=== PATIENT | female | born 1945 | race Caucasian/White ===

== ENCOUNTER → 2023-06-11 16:25 | Outpatient (REF) | payer MEDICARE, SELFPAY | LOC: RAD 16:25 | PROVIDERS: ATTENDING PHYSICIAN Internal Medicine Critical Care Medicine | DX: R91.1 Solitary pulmonary nodule (principal) | CPT/HCPCS: 71250 ==

== ENCOUNTER → 2023-11-11 09:40 | Outpatient (REF) | payer MEDICARE, SELFPAY | LOC: HWWDC 09:40 | PROVIDERS: ATTENDING PHYSICIAN Family Medicine | DX: Z12.31 Encounter for screening mammogram for malignant neoplasm of breast (principal) | CPT/HCPCS: 77063; 77067 ==

== ENCOUNTER 2023-11-20 20:32 | Inpatient (IN) | payer MEDICARE, SELFPAY ==
[2023-11-20] VITALS (10 sets, daily range): BP systolic 130–174; BP diastolic 75–112; BMI 22.6
[2023-11-20 15:41] LABS: % Basophils 1.1 % (0-2); % Eosinophils 3.5 % (0-6); % Lymphocytes 16.9 % (20.5-51.1); % Monocytes 8.5 % (1.7-9.3); Absolute Basophils 0.1 10^3/uL (0-0.2); Absolute Eosinophils 0.4 10^3/uL (0-0.7); Absolute Immature Granulocytes 0.1 10^3/uL (0-0.05); Absolute Lymphocytes 1.8 10^3/uL (1.2-3.4); Absolute Monocytes 0.9 10^3/uL (0.1-0.6); Absolute Neutrophils 7.3 10^3/uL (1.4-6.5); Hematocrit 39.7 % (37.0-47.0); Mean Corp Hgb Conc. 35.3 g/dL (33.0-37.0); Mean Corpuscular Hgb 30.5 pg (27.0-31.0); Mean Corpuscular Volume 86.5 fL (81.0-99.0); Mean Platelet Volume 8.7 fL (7.4-10.4); Nucleated Red Blood Cells % 0 %; Platelet Count 364 10^3/uL (130-400); Red Blood Cell Count 4.59 10^6/uL (4.20-5.40); Red Cell Dist. Width 15.4 % (11.5-14.5); White Blood Cell Count 10.6 10^3/uL (4.8-10.8)
[2023-11-20 15:56] LABS: COVID-19 Antigen Negative (Negative)
[2023-11-20 15:57] LABS: ALT (SGPT) 16 U/L (0-35); AST (SGOT) 21 U/L (14-36); Albumin 3.9 g/dl (3.5-5.0); Alkaline Phosphatase 82 U/L (38-126); Blood Urea Nitrogen 14 mg/dl (7-17); Calcium 9.4 mg/dl (8.4-10.2); Carbon Dioxide 23 mmol/L (22-30); Chloride 104 mmol/L (98-107); Glucose 292 mg/dl (70-99); Potassium 3.6 mmol/L (3.5-5.1); Sodium 135 mmol/L (135-145); Total Bilirubin 0.5 mg/dl (0.2-1.3); Total Protein 6.4 g/dl (6.3-8.2); eGFR > 60.00
--- NOTE | 2023-11-20 19:07 | ED.GENMED ---
History of Present Illness
General
Chief Complaint: Cold/Flu/URI Symptoms
Source: patient
Exam Limitations: none
Time Seen by Provider: 11/20/23 17:30
Nursing documentation reviewed up to this point in time: agreed with
History of Present Illness
History of Present Illness:
Patient presents to ED secondary to 5-day history of persistent cough, along with shortness of breath. Denies fever or chills. Denies chest pain. Denies abdominal pain. Denies nausea, vomiting, or diarrhea. Denies rash. Denies loss of
appetite. Denies recent travel or surgery.
Review of Systems
Review of Systems
Allergies reviewed?: Yes
All Other Systems: ROS reviewed and negative except as documented in HPI and ROS
Constitutional: Reports no symptoms; Denies fever
Respiratory: Reports cough and trouble breathing
Cardiac: Reports no symptoms
ABD/GI: Reports no symptoms
Musculoskeletal: Reports no symptoms
Skin: Reports no symptoms
Neurological: Reports no symptoms
Phy Exam
Physical Exam
Physical Exam:
Physical Exam
General: mild respiratory distress, not acutely ill. afebrile.
Head: nc/at. eomi
Neck: supple. no meningeal signs.
Heart: irregularly irregular, tachycardic, no murmur. equal radial pulses.
Lungs: mild respiratory distress. diminished bilaterally
Abdomen: normal bowel sounds. not tender.
Neuro: alert and oriented. no focal neurological deficits
Skin: no rash
Psychiatric: well kept. interactive and cooperative
Extremities: LE b/l edema. no calf tenderness.
Course
Orders/Labs/Results
Orders:
Orders
11/20/23 Dinner
Cholesterol Lowering
At Your Request: Full Participation
Does patient need a safe tray?: No
Cholesterol Lowering: Sodium, 2 Gram
11/20/23 15:18
EKG [Electrocardiogram (*1)] Urgent
Reason for Study: Shortness of Breath
EKG- Treatment ONCE
11/20/23 15:19
Chest [CR Chest - 2 Views ] Urgent
Comment:
Reason For Exam: cough, shortness of breath
11/20/23 15:20
US Legs, Left [US Periph Venous LOWER Ext LT] Urgent
Comment:
Reason For Exam: pain behind knee, calf area
11/20/23 15:30
CBC/With Diff [Complete Blood Count/With Diff] Urgent
CMP [Comprehensive Metabolic Panel] Urgent
COVID-19 Antigen Urgent
Source: Nasal Swab
NT-proBNP Urgent
Comment: ADD ON
TSH Reflex To Free T4 Urgent
Comment: ADD ON
11/20/23 19:19
Azithromycin 500 mg/250 ml [Zithromax Infusion] 500 mg in 250 ml IV NOW
CefTRIAXone [Rocephin] 1,000 mg IV NOW STA
11/20/23 19:20
Ipratropium/Albuterol Sulfate [Duoneb] 3 ml INH R NOW STA
11/20/23 19:21
Benzonatate [Tessalon Perles] 100 mg PO NOW STA
11/20/23 19:30
Diltiazem 125 mg/125 ml Nss [Cardizem] 125 mg in 125 ml IV PER PROTOCOL
Initial dose in mg/hr, then titrate:: 5
Titrate to keep:: Heart rate 80-100 bpm
Titrate by mg/hr:: 5 mg/hr
Frequency of titrations (minutes):: 15
Maximum dose in mg/hr:: 15
11/20/23 19:54
Add On- LAB Urgent
Tests Added?: bnp, tsh with free t4
11/20/23 19:58
Admit/Transfer Patient As Directed
Co-Sign Provider:
Level of Care: Inpatient admission
Assign to:: IMU- Intermediate Care
Physician / Group: jhony velazco
Diagnosis: hypoxia 2/2 left side pna, rapid afb rvr
Reason for Hospitalization: hypoxia 2/2 left side pna, rapid afb rvr
Expected length of stay greater than two midnights?: Yes
ELOS- Estimated Length of Stay in days: 4
I certify the patient meets the requirements for IP care: Yes
11/20/23 20:04
Code Status As Directed
Resuscitation Status: Full Code
11/20/23 20:16
Consult Cardiology [CARDIOLOGY CONSULT] Routine
Consulting Provider: Abhishek Billingsley
Was physician already notified: Yes
Reason for consult: afib with rvr
11/20/23 20:22
Add On- LAB Urgent
Tests Added?: procal
11/20/23 20:23
Procalcitonin Urgent
Comment: COLLECT. CANNOT ADD ON. SPECIMEN IN LAB TO OLD
11/20/23 21:15
Diltiazem 125 mg/125 ml Nss [Cardizem] 125 mg in 125 ml IV PER PROTOCOL
Currently infusing. Continue current dose and titrate:: Yes
Titrate to keep:: Heart rate 80-100 bpm
Titrate by mg/hr:: 5 mg/hr
Frequency of titrations (minutes):: 15
Maximum dose in mg/hr:: 15
11/20/23 21:15
Activity As Directed
Activity Level: As Tolerated
Intake/ Output As Directed
Frequency: Per unit guidelines
Vital Signs As Directed
Frequency: Per unit guidelines
Weight As Directed
Frequency: Daily
O2 Therapy [RESP] Routine
Nasal Cannula Liter Flow: 2 LPM
Titrate/Wean O2 to maintain O2 sat greater than (%): 92
Pulse Ox/spot Check [RESP] Routine
Quantity: 1
Ot Eval And Treat Routine
Pt Eval And Treat Routine
Activity Level: As Tolerated
DX Deep Vein Thrombosis Video Routine
11/21/23 06:00
Echo 2D MMode Color/Doppler IN AM
Reason for Study: afib
Basic Metabolic Panel IN AM
Complete Blood Count/With Diff IN AM
Hgba1c [Glycohemoglobin (HgbA1c)] IN AM
11/21/23 08:00
Heparin 5,000 units SC Q12
11/22/23 06:00
Basic Metabolic Panel IN AM
Complete Blood Count/With Diff IN AM
11/23/23 06:00
Basic Metabolic Panel IN AM
Complete Blood Count/With Diff IN AM
11/24/23 06:00
Basic Metabolic Panel IN AM
Complete Blood Count/With Diff IN AM
Abnormal Lab Results
11/20/23
15:30
RDW 15.4 H %
(11.5-14.5)
Abs Immat Gran (auto) 0.1 H 10^3/uL
(0-0.05)
Absolute Neuts (auto) 7.3 H 10^3/uL
(1.4-6.5)
Absolute Monos (auto) 0.9 H 10^3/uL
(0.1-0.6)
Immature Gran % 1.0 H %
(0-0.5)
Lymphocytes % 16.9 L %
(20.5-51.1)
Glucose 292 H mg/dl
(70-99)
11/20/23 15:30
11/20/23 15:30
Vital Signs
Initial and Last Documented VS:
Initial Vital Signs
Temp Pulse Resp BP Pulse Ox
98.2 F 110 25 144/82 95
11/20/23 15:11 11/20/23 15:11 11/20/23 15:11 11/20/23 15:11 11/20/23 15:11
Last Documented Vital Signs
Temp Pulse Resp BP Pulse Ox
98.2 F 103 18 137/81 94
11/20/23 15:11 11/20/23 21:40 11/20/23 21:30 11/20/23 21:40 11/20/23 22:12
MDM/Problems Addressed
MDM/Problems Addressed:
History, exam, and chest x-ray consistent with pneumonia. Patient with mild hypoxia during minimal ambulation with tachycardia, resolved at rest. Patient will be admitted for IV antibiotics, nebulizer treatment, as well as Cardizem infusion, due
to what appears to be recurrent atrial fibrillation. Anticoagulation to be discussed during admission.
Critical care statement: A total of 40 minutes of critical care time was provided for this patient. This includes management of unstable vital signs, evaluation of the patient at bedside, reviewing the patient's pertinent medical records, review of
old EKGs and review of pertinent medical records. This time with separate from time utilized to perform the aforementioned documented procedures
*Critical Care Note
Total Time (30-74mins, 75-104mins- exclusive of procedures): 40 min
ED Attending Note
-
Portions of this chart may have been created with voice recognition software.� Occasional wrong word or��sound alike� substitutions may have occurred due to the inherent limitations of voice recognition software.
Discharge Plan
Departure
Patient Disposition: Admit
Date of Disposition: 11/20/23
Time of Disposition: 19:26
Admit to: Telemetry
Presentation/result/management discussed w/ accepting MD/DO: Hospitalist
Discharge Problem:
Pneumonia, Hypoxia, Atrial fibrillation, rapid
Interventions
Interventions:
*Risk Screen - Suicide Last Done: 11/20/23 15:11
*General Assessment Last Done: 11/20/23 15:11
*Neglect/Abuse Screening Last Done: 11/20/23 15:11
ED- Fall Risk Assessment Last Done: 11/20/23 21:36
*ED COVID-19 Vaccine History Last Done: 11/20/23 21:54
*Nursing Disposition Last Done: 11/20/23 21:36
ED- Pulmonary Assessment Last Done: 11/20/23 17:59
Discharge Date and Time
Discharge Date/Time: 11/20/23 21:36
--- NOTE | 2023-11-20 19:34 | HPS.HSE ---
Addendum entered and electronically signed by Harmeet Bergman DO 11/20/23 21:47:
Patient seen and examined independently. Agree with findings and plan as set forth by WAQAS Cline.
Patient is a 78y F with PMH significant for COPD, paroxysmal A-Fib and hypertension who presents to ED complaining of cough, SOB / GRISSOM and subjective fever for about 5 days. Patient denies any chest pain or palpitations. She states that she has
had A-Fib in the past - but it is rare and brief and has never previously required medication / treatment.
Ass:
Paroxysmal Atrial Fibrillation with Rapid Ventricular Response
Acute HF - Unknown Type - Likely HFpEF
Acute Hypoxemic Respiratory Insufficiency secondary to the above
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
COPD without Acute Exacerbation
Benign Hypertension
Plan:
Admit for further evaluation and treatment.
Clinically seems most c/w CHF secondary to A-Fib > infectious process.
BNP markedly elevated and CXR with vascular prominence.
Procal is pending - but will hold further abx for now.
IV Lasix 20mg daily.
IV Cardizem for rate control for now.
Cardiology evaluation for additional recommendations.
Update Echo.
Check A1C - suspect patient would benefit from treatment for DM.
Follow glucose and cover with SSI if needed.
Original Note:
Family Physician
-
Family Physician:
Chief Complaint
-
Shortness of breath, cough, hypoxia, palpitations
History of Present Illness
78-year-old female complaining of 5-day history of nonproductive cough, shortness of breath, palpitations. She was noted to be hypoxic at 90% on room air in the ER with heart rate 140s. She reports history of A-fib approximately every 5 years over
the past 25 years she has never been on anticoagulation therapy or rate control medications. She follows with Dr. Sheldon from [facility] cardiology. She also reports history of COPD mild uses inhaler once a day. She denies fever, chills, sore throat,
chest pain, palpitations, abdominal pain, nausea, vomiting, diarrhea, urinary symptoms.
SHe has past medical history of COPD, former smoker, A-fib, HTN, prediabetes
Medical History
Past Medical History
Past Medical History: Reports Other
Additional Past Medical History:
COPD
former smoker
A-fib
HTN,
prediabetes
Past Surgical History: Reports Other
Additional Past Surgical History:
Total hysterectomy
Tracheostomy at 18 months old
Cataract extraction
Social History
Tobacco: Former Smoker (5 years 1 pack a day quit 16 years ago)
Alcohol: None
Personal:
Living: With Family
Employment: Retired
Family History
Family History: Not pertinent
Allergies / Home Medications
Allergies reflects when Allergies were last updated in [employer].
Home Medications with original date entered in [employer]
Allergy/Medication List:
Allergies
Allergy/AdvReac Type Severity Reaction Status Date / Time
acetaminophen Allergy Unknown Verified 11/20/23 15:21
[From Tylenol-Codeine]
codeine Allergy Unknown Verified 11/20/23 15:21
[From Tylenol-Codeine]
hydrochlorothiazide Allergy Unknown Verified 11/20/23 15:21
Iodinated Contrast Media Allergy Unknown Verified 11/20/23 15:21
shellfish derived Allergy Unknown Verified 11/20/23 15:21
Home Medications
Vitamin D3 1 cap PO DAILY 11/20/23
citalopram 20 mg tablet 20 mg PO DAILY 11/20/23
diltiazem HCl 30 mg PO BID 11/20/23
metoprolol tartrate 37.5 mg PO BID 11/20/23
multivitamin 1 tab PO DAILY 11/20/23
tiotropium 2.5 mcg-olodaterol 2.5 mcg/actuation mist for inhalation (Stiolto Respimat) 2 puff inhalation DAILY 11/20/23
Review of Systems
-
History Source: Patient
A 12 point ROS was completed and negative except as noted: Yes
Constitutional: Reports Chills; Denies Fever
EENT: Denies Sore Throat or Runny Nose
Respiratory: Reports Cough (Nonproductive) and Trouble Breathing
Cardiac: Reports Palpitations; Denies Chest Pain, Diaphoresis or Syncope
Abdomen/GI: Denies Abdominal Pain, Nausea, Vomiting, Diarrhea, Constipated, Bloody Stools or Black Stools
: Denies Dysuria, Frequency, Flank Pain, Incontinence, Difficulty Voiding or Urgency
Musculoskeletal: Reports Edema (+1 nonpitting bilateral lower legs); Denies Joint Pain
Skin: Denies Itching or Rash
Neurological: Denies Dizzy or Headache
Endocrine: Reports No Symptoms
Hematologic/Lymphatic: Reports No Symptoms
Psych: Reports Calm
Physical Exam
Vital Signs
Vital Signs
Temp Pulse Resp BP Pulse Ox
98.2 F 105 20 172/85 92
11/20/23 15:11 11/20/23 17:21 11/20/23 17:21 11/20/23 17:21 11/20/23 17:21
Physical Exam
General: Comfortable and Conversant; No Pain, Fever or Chills
HEENT: NormoCephalic, Anicteric, Moist mucous membranes, PERRLA, [place] Conjunctivae and No Ptosis
Respiratory: Other (Diminished throughout left lung field right CTA); No Wheezes, Rales or Rhonchi
Cardiac: S1/S2, Irregular Rhythm (A-fib 120 bpm on monitor) and Peripheral Edema (+1 nonpitting bilateral lower legs); No Murmur, Rub or Gallop
Breast: Deferred by me
GI: Soft, Non Tender, Non Distended, Normal Bowel Sounds and No Hepatosplenomegaly
Rectal: Deferred by Provider
Genito-urinary: Deferred by me
Musculoskeletal: No Clubbing, No Cyanosis, Edema, Left Lower Extremity (+1 nonpitting bilateral lower legs) and Edema, Right Lower Extremity (+1 nonpitting bilateral lower legs); No Edema, Left Upper Extremity or Edema, Right Upper Extremity
Skin: Warm and Dry; No Rash
Neuro: AO x 3, No Motor Deficits, Nonfocal/grossly intact, Cranial Nerves Intact and No Sensory Deficits; No Slurred Speech, Facial Droop or Tremors
Psych: Calm
Laboratory Results
-
11/20/23 15:30
11/20/23 15:30
Laboratory Results
Total Bilirubin 0.5 mg/dl (0.2-1.3) 11/20/23 15:30
AST 21 U/L (14-36) 11/20/23 15:30
ALT 16 U/L (0-35) 11/20/23 15:30
Alkaline Phosphatase 82 U/L (38-126) 11/20/23 15:30
Data Reviewed
-
Diagnostic Radiology: Report Reviewed by me
Lab Data: Labs Reviewed by me
Impression/Plan
-
Impression/plan:
Admit to IMU
#Hypoxic resp insuff 2/2 New Acute CHf Less likley pna
90% RA, supportive 02 2 ltiers
COVID-negative, afebrile, WBC 10.6
-BNP 7320
- Iv lasix 20 mg now
- Procal pending
-Hold further ABX pending Pro-Bobby low likelihood PNA
CXR: Suspicious for mild pneumonia in the mid to left lower lung.
Small left pleural effusion.
COPD
Peripheral vascular ultrasound left leg negative for DVT
#A-fib with RVR/history of paroxysmal A-fib every 5 years past 25 years
LBBB ? new
-IV Cardizem bolus with IV drip, hold po cardizem
-Consult [facility] cardiology
-Check 2D echo
-Check TSH with free T4 reflex
EKG: A-fib 85 bpm LBBB, QTc 468 MS no previous EKGs
2D echo 09/26/2021: EF 55-60%, mild LVH, mild MR/dilated left atrium aortic sclerosis without stenosis and regurg, normal pulm arterial pressure
#Acute hyperglycemia/Hx reported prediabetes
BS 292
Check HgbA1c
#COPD hx moderate to advanced on CT 04/16/2022�no acute exacerbation
Former smoker 45-year 1 pack a day quit 16 years ago
-Uses inhaler once a day
-Follows with Dr. Aranda
#HTN-benign
BP 172/85
-cont metoprolol 37.5 mg bid
#anxiety
cont citalopram
DVT prophylaxis
Subcu Lovenox
Full code
[2023-11-20] MEDS: ROCEPHIN 1000 MG IV (19:35)
[2023-11-20] MEDS: DUONEB 3 ML INH (19:35)
[2023-11-20] MEDS: TESSALON PERLES 100 MG PO (19:35)
[2023-11-20] MEDS: CARDIZEM 125 IV (19:36)
[2023-11-20] MEDS: ZITHROMAX INFUSION 250 IV (19:36)
[2023-11-20 20:50] LABS: NT-proBNP 7320 pg/ml
[2023-11-20 21:12] LABS: TSH Reflex To Free T4 0.71 uIU/ml (0.47-4.68)
[2023-11-20] MEDS: LASIX 20 MG IV (21:40)
--- NOTE | 2023-11-20 22:11 | PTCARENOTE ---
Pt received from ED. Pt made comfortable and oriented to room. Admission questions completed. Call light in reach.
--- NOTE | 2023-11-20 22:53 | PTCARENOTE ---
Pt attempted to exit bed and walk to bathroom via self. Pt became extremely SOB RR 25, sat 89%. Pt told to get back in bed. Pt increased to 5L. Pt offered bed panchal, Pt visibly upset related to having to urinate via the bed panchal. Pt eventually able to
urinate on bed apnchal. Pt anxious. Pt instructed to focus on breathing. Taking slow deep breaths.
[2023-11-21] VITALS (31 sets, daily range): BP systolic 135–178; BP diastolic 69–111; PULSE 91–129; O2SAT 95–96; BMI 22.6
[2023-11-21 00:03] LABS: Procalcitonin 0.08 ng/ml (0.0-0.25)
[2023-11-21] MEDS: TYLENOL 650 MG PO ×3 (02:25→15:47)
--- NOTE | 2023-11-21 03:37 | PTCARENOTE ---
CHIEF CLERK SHELTER notified of HTN, Pt having SBPS in the 160's-170's. Pt denies changes in vision, or dizziness.Pt has hx of HTN. Order received for PRN Lopressor SBP > 160.
--- NOTE | 2023-11-21 03:40 | PTCARENOTE ---
Addendum entered by John Cerrato RN 11/21/23 03:43:
Tylenol order received. med administered. Pt assessed for SOB, itchiness, allergic reaction. Pt denies any of the previously stated. RR unlabored, sat 95%.
Original Note:
Pt requesting Tylenol for sore neck and back, states it is r/t to laying in the position upright in the hospital bed all day. Pt has allergy listed for Tylenol as well as Codeine. Pt clarifies she is allergic to Tylenol with codeine. She admits to
no allergic reaction when taking Tylenol by itself, states she takes it daily.
[2023-11-21] MEDS: CARDIZEM 125 IV ×3 (04:18→20:27)
[2023-11-21 05:48] LABS: % Eosinophils 1.9 % (0-6); % Lymphocytes 17.9 % (20.5-51.1); % Monocytes 7.3 % (1.7-9.3); % Neutrophils 70.9 % (42.2-75.2); Absolute Basophils 0.1 10^3/uL (0-0.2); Absolute Eosinophils 0.2 10^3/uL (0-0.7); Absolute Immature Granulocytes 0.1 10^3/uL (0-0.05); Absolute Lymphocytes 2.2 10^3/uL (1.2-3.4); Absolute Monocytes 0.9 10^3/uL (0.1-0.6); Absolute Neutrophils 8.5 10^3/uL (1.4-6.5); Hematocrit 38.9 % (37.0-47.0); Hemoglobin 13.8 g/dL (12.0-16.0); Mean Corp Hgb Conc. 35.5 g/dL (33.0-37.0); Mean Corpuscular Hgb 30.4 pg (27.0-31.0); Mean Corpuscular Volume 85.7 fL (81.0-99.0); Mean Platelet Volume 8.8 fL (7.4-10.4); Nucleated Red Blood Cells % 0 %; Platelet Count 375 10^3/uL (130-400); Red Blood Cell Count 4.54 10^6/uL (4.20-5.40); Red Cell Dist. Width 15.1 % (11.5-14.5)
[2023-11-21 06:07] LABS: Blood Urea Nitrogen 12 mg/dl (7-17); Calcium 9.5 mg/dl (8.4-10.2); Carbon Dioxide 25 mmol/L (22-30); Chloride 105 mmol/L (98-107); Estimated Creatinine Clearance 55 ml/min; Glucose 221 mg/dl (70-99); Potassium 3.7 mmol/L (3.5-5.1); Sodium 138 mmol/L (135-145); eGFR > 60.00
--- NOTE | 2023-11-21 07:00 | PTCARENOTE ---
Cannot verify VS captured from prior shift.
[2023-11-21] MEDS: SPIRIVA RESPIMAT 2.5 MCG 2 PUFF INH (07:25)
[2023-11-21] MEDS: STRIVERDI RESPIMAT 2 PUFF INH (07:26)
[2023-11-21 07:50] LABS: Glucose - Point of Care 247 mg/dl (70-99)
[2023-11-21] MEDS: NOVOLOG FLEXPEN-LOW RESISTANCE 2 UNITS SC ×2 (08:07→12:45)
[2023-11-21] MEDS: LASIX 20 MG IV ×2 (08:09→15:47)
[2023-11-21] MEDS: HEPARIN 5000 UNITS SC (08:09)
[2023-11-21] MEDS: THERAGRAN 1 TABLET PO (08:10)
[2023-11-21] MEDS: LOPRESSOR 50 MG PO (08:10)
[2023-11-21] MEDS: CELEXA 20 MG PO (08:10)
--- NOTE | 2023-11-21 08:14 | W.PN.HOSP.TC ---
Today's Communication/Plan
-
Diuresis, Abx, IandOs, daily weights
Assessment / Plan
Assessment / Plan
#Hypoxic resp insuff
2/2 heart failure vs pna.
90% RA, currently 92% on 4L O2 NC
Possibly PNA: viral vs bacterial vs pneumonitis. Covid negative, afebrile, WBC 10.6 on arrival -->12.0 today. Subjective fever/chills/malaise 5 days ago before onset of cough and worsening SOB. No recurrent fevers
-BNP 7320, bilateral LE edema. Mild crackles on RLL
-Echo
-Continue Iv lasix 20 BID now
-Procal normal
-Restart Abx: Ceftriaxone and Doxycycline
#A-fib with RVR/history of paroxysmal A-fib every 5 years past 25 years
2D echo 09/26/2021: EF 55-60%, mild LVH, mild MR/dilated left atrium aortic sclerosis without stenosis and regurg, normal pulm arterial pressure
EKG: A-fib 85 bpm LBBB, QTc 468 MS no previous EKGs
TSH normal
-Appreciate cardiology input
-cardizem drip for rate control, converted to p.o. Cardizem as tolerated
-For 2D echo.
-Begin Eliquis
#Elevated glucose:
BS 292
HbA1c 6.7 indicating Diabetes
-ISS, accuchecks, carb-controlled diet
#COPD hx
moderate to advanced on CT 04/16/2022�no wheezing on PE
Former smoker 45-year 1 pack a day quit 16 years ago
-Uses inhaler once a day
-Follows with Dr. Aranda
#HTN-benign
BP 172/85
-Metoprolol succinate 50 mg twice daily
#anxiety
cont citalopram
#GERD:
-Continue PPI
DVT prophylaxis: Eliquis
Full code
DATA:
CXR: Suspicious for mild pneumonia in the mid to left lower lung.
Small left pleural effusion.
COPD
Peripheral vascular ultrasound left leg negative for DVT
D echo 09/26/2021: EF 55-60%, mild LVH, mild MR/dilated left atrium aortic sclerosis without stenosis and regurg, normal pulm arterial pressure
EKG: A-fib 85 bpm LBBB, QTc 468 MS no previous EKGs
Anticipated Discharge: > 48 hours
Subjective/Interval History
-
Date of Service: November 21, 2023
Subjective fever/chills/fatigue 5 days prior to presentation worsening shortness of breath since. 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 Denies fever/chills since
then. We stressed recently.
Today she denies chest pain, palpitation. There is some shortness of breath and mild headache
Objective Data
-
Labs:
Laboratory Results
11/21/23
05:23
WBC 12.0 H
Hgb 13.8
Hct 38.9
Plt Count 375
Sodium 138
Potassium 3.7
Chloride 105
Carbon Dioxide 25
BUN 12
Creatinine 0.8
Glucose 221 H
Calcium 9.5
Vital Signs:
Vital Signs
Temp Pulse Resp BP Pulse Ox
98.2 F 108 24 178/86 95
11/21/23 03:30 11/21/23 07:28 11/21/23 07:28 11/21/23 01:01 11/21/23 07:28
Review of Systems
-
History Source: Patient
Constitutional: Reports Fatigue; Denies Fever
Respiratory: Reports Cough and Trouble Breathing
Cardiac: Denies Chest Pain or Palpitations
Musculoskeletal: Reports Edema
Neuro: Reports Headache
Physical Exam
-
General: Well Developed and Respiratory Distress (Mild)
HEENT: Moist Mucous Membranes
Respiratory: Crackles (Right lower lobe) and Other
Cardiac: S1/S2, Irregular Rhythm (Irregularly irregular) and Other (Normal rate); Negative Murmur, Rub or [place]'s Sign
GI: Soft, Nontender, Nondistended and Normal Bowel Sounds
Musculoskeletal: Edema, Right Lower Extrem (1+) and Edema, Left Lower Extrem (1+)
Skin: Warm and Dry; Negative Ulcers or Lesions
Psych: Calm
--- NOTE | 2023-11-21 08:20 | CON.CAR ---
Addendum entered and electronically signed by Wang Roberto DO 11/21/23 09:40:
I saw and examined the patient.
The Day Light Relief Operator's note was reviewed and I agree with the note.
Comment:
Pleasant 78-year-old female with a history of paroxysmal atrial fibrillation not on anticoagulation, COPD, hypertension, hyperlipidemia, prediabetes, chronic left bundle branch block, peripheral vascular disease presenting with shortness of breath.
In discussion with patient, she noted lower extremity swelling, abdominal distention for few days prior to admission along with cough fever and chills. Patient denies any palpitations prior to admission however noted significant palpitations
associated with atrial fibrillation today. Initial imaging demonstrated effusion versus pneumonia in the setting of her well-known COPD. Lab work Pro-Bobby 0.08, mild leukocytosis with shift, BNP greater than 7000. Patient noted to be in atrial
fibrillation with rapid ventricular response A1c also 6.7 indicating diabetes.
GENERAL: no acute distress, on nasal cannula
EYE: sclera anicteric
NECK: Supple, no JVD, no carotid bruit appreciated
ENT: normal nose, moist mucosal membranes
CARDIAC: Irregularly irregular, +S1/S2, no murmur, rubs, or gallops
CHEST/PULMONARY: Normal effort, distant breath sounds, faint expiratory wheeze, no crackles or rales
ABDOMEN: Soft, without focal tenderness, mild distention
NEUROLOGICAL: Alert and oriented x3
SKIN: Warm and dry, no rash; trace bilateral lower extremity edema
PSYCH: Normal and appropriate interaction.
A/P as below
� Patient with paroxysmal atrial fibrillation with rapid ventricular response in the setting of acute heart failure and possible pneumonia/COPD exacerbation.
� 2D echo
� [id number]: 7 (heart failure, hypertension, age, diabetes, gender, vascular disease). Not previously on oral anticoagulation, starting Eliquis 5 mg twice daily for stroke risk reduction
� On Cardizem drip for rate control currently, will resume oral beta-chika and wean drip as tolerated
� Tentative FRANSISCO/DCCV Friday if patient remains in atrial fibrillation
� Strict intake and output Daily weights with IV diuresis; increase Lasix dosing
Original Note:
Consultation
Consultation Request
Date/Time Consultation Performed: 11/21/23
Requesting Provider: Dr. Bergman
Performing Provider: Maren Velásquez PA-C for Dr. Roberto
Reason for Consultation: CHF, afib
Medical History
-
Chief Complaint: SOB
History of Present Illness:
Patient is a 78-year-old female with past medical history of paroxysmal atrial fibrillation, not chronically anticoagulated at her request due to low burden, COPD, hypertension, hyperlipidemia, Prediabetes, chronic left bundle branch block,
peripheral vascular disease who presented to outside hospital for evaluation of shortness of breath. She states she felt sick starting the afternoon of 11/13. She reports she had some fevers and chills and cough. On Friday she was in bed all
day. She reports she had shortness of breath Friday and Friday, which progressively worsened causing her to come to the ER for further evaluation last night. She denies weight gain, orthopnea, LE edema. She was noted to be hypoxic on
arrival and in rapid atrial fibrillation. She denies chest pains or significant palpitations. proBNP 7320. CXR with evidence of L PNA and small pleural effusion as well as known COPD. procal 0.08. Cardiology consulted for evaluation.
PMH:
Paroxysmal atrial fibrillation
Not chronically anticoagulated due to historically low burden
COPD
Hypertension
Hyperlipidemia
Prediabetes
Chronic left bundle branch block
Peripheral vascular disease with prior right SFA stent 2016
IV dye allergy
Former smoker
Past Medical History
Past Medical History: Other (in HPI)
Social History
Tobacco: Former Smoker
Personal:
Living: With Family
Employment: Retired
Family History
Family History: Cancer
Allergies / Home Medications
Allergy/AdvReac Type Severity Reaction Status Date / Time
acetaminophen Allergy Unknown Verified 11/20/23 15:21
[From Tylenol-Codeine]
codeine Allergy Unknown Verified 11/20/23 15:21
[From Tylenol-Codeine]
hydrochlorothiazide Allergy Unknown Verified 11/20/23 15:21
Iodinated Contrast Media Allergy Unknown Verified 11/20/23 15:21
shellfish derived Allergy Unknown Verified 11/20/23 15:21
�Medication �Instructions �Recorded �Confirmed �Type
Vitamin D3 1 cap PO DAILY 11/20/23 11/20/23 History
citalopram 20 mg tablet 20 mg PO DAILY 11/20/23 11/20/23 History
diltiazem HCl 30 mg PO BID 11/20/23 11/20/23 History
metoprolol tartrate 37.5 mg PO BID 11/20/23 11/20/23 History
multivitamin 1 tab PO DAILY 11/20/23 11/20/23 History
tiotropium 2.5 mcg-olodaterol 2.5 2 puff inhalation DAILY 11/20/23 11/20/23 History
mcg/actuation mist for inhalation
(Stiolto Respimat)
Review of Systems
-
History Source: Patient
All other systems: Negative unless noted
Physical Exam
Vital Signs
Temp Pulse Resp BP Pulse Ox
98.2 F 108 24 178/86 95
11/21/23 03:30 11/21/23 07:28 11/21/23 07:28 11/21/23 01:01 11/21/23 07:28
Lab Results
11/21/23 05:23
11/21/23 05:23
Raq-K-Ozqwjzsahjr Pept 7320 pg/ml 11/20/23 15:30
Physical Exam
General: Other (appears dypsneic. on supp O2)
HEENT: Normocephalic, Anicteric and Moist Mucous Membranes
Respiratory: Other (poor air movement)
Cardiac: S1/S2 and Irregular Rhythm
GI: Soft, Non Tender, Non Distended and Normal Bowel Sounds
Musculoskeletal: No Clubbing, No Cyanosis and Edema (trace-1+ of B/L LE)
Skin: Warm and Dry
Neuro: AO x 3
Impression / Plan
-
Primary Bow Maker Machine Tender: Dr. Sheldon
Assessment:
Presentation with SOB
Acute hypoxic respiratory insufficiency
Acute HFpEF
Possible PNA by CXR
Paroxysmal atrial fibrillation, now with RVR
Not chronically anticoagulated by patient preference due to historically low burden
COPD
Hypertension
Hyperlipidemia
Prediabetes
Chronic left bundle branch block
Peripheral vascular disease with prior right SFA stent 2016
IV dye allergy
Former smoker
Echo 09/26/2021: EF 55 to 60%, mild LVH, MAC, mild MR, dilated left atrium, aortic sclerosis, normal right heart
Plan:
-Patient presents with SOB. reports feeling poorly for ~ the last week. reports some subjective fevers. covid negative
-CXR read as possible L PNA with small pleural effusion. proBNP elevated at 7320.
-continue IV lasix diuresis, dose of IV lasix increased to 20mg BID. she reports good response overnight
-CHF education
-wean supp O2 as able
-CM to assess cost to patient of [facility]
-check echo
-in rapid AF. HRs improving on IV cardizem gtt, continue and uptitrate as needed for rate control. as BPs elevated, consider adding low dose po BB in addition - was on lopressor 37.5mg BID as OP
-[id number] score of 7 age, female, HTN, CHF, vascular disease, DM. she previously has opted to not be anticoagulated due to low afib burden. she is now agreeable. will start eliquis 5mg BID. will have CM assess cost to patient
-TSH WNL
-consider for FRANSISCO/CV on Friday once respiratory status improved
-eventual consideration for ablative strategy
Data Reviewed
-
EKG: Tracing Personally Visualized and interpreted
Radiology: Report Reviewed by me
Medical Tests (Nuc Med, Echo etc): Report Reviewed by me
Labs: Labs Reviewed by me
Old Records: Reviewed
[2023-11-21 09:25] LABS: Glycohemoglobin (HgbA1c) 6.7 % (4.0-5.6)
[2023-11-21] MEDS: XOPENEX 1.25 MG INHALANT SOLUTION INH (10:15)
[2023-11-21] MEDS: LOPRESSOR 5 MG IV ×2 (10:49→20:36)
[2023-11-21] MEDS: ELIQUIS 5 MG PO ×2 (10:49→20:35)
[2023-11-21] MEDS: PROTONIX 20 MG PO (10:49)
--- NOTE | 2023-11-21 11:25 | PTCARENOTE ---
Pt presents as assessed. Aox3. Afib on tele monitor, rates up to the 140's. Cardizem gtt infusing and adjusted as ordered, see intervention. Pt updated on plan of care. Ringing appropriately, call knapp within reach.
--- NOTE | 2023-11-21 11:49 | CM ---
Patient with Dx Hypoxic resp insuff 2/2 New Acute CHF Less likely PNA, A-fib with RVR, Acute hyperglycemia. O2 4L. Receiving IV Abx, IV Lasix.
Met with patient who resides with her in a 2 story house with 1 flight inside stairs up to main living area & bedroom/bath. There is an attached in-law unit also.
The patient has been independent in ADLs and ambultion without using any assistive devices.
Patient volunteers she used to work at [employer] in the [employer] dept.
She has no DME, prior VN or SNF.
PCP - Wang Cooley
Pharmacy - [facility]
CM Consult: [place] check Eliquis and Farxiga
Patient agrees to $108.16/month cost Eliquis and $105.95/month cost Farxiga ($100.66/month for dapaglifloxin), gave her Free Month copay cards for both drugs. Maren Velásquez and Dr Bynum notified.
Offered VN for HF Education and patient declines.
Plan watch for home O2 needs.
Plan home.
[2023-11-21 12:37] LABS: Glucose - Point of Care 233 mg/dl (70-99)
--- NOTE | 2023-11-21 14:33 | PTCARENOTE ---
Pt hypertensive with SBP in the 150-160'a. PRN Lopressor administered; pt remains hypertensive. Dr. Esquivel notified, no further orders received at this time.
[2023-11-21 16:24] LABS: Glucose - Point of Care 231 mg/dl (70-99)
[2023-11-21] MEDS: NOVOLOG FLEXPEN-MODERATE RESISTANCE 3 UNITS SC (16:37)
--- NOTE | 2023-11-21 16:55 | W.PN.UPDATE ---
Update Note
Progress Note Update
I saw and evaluated the patient. I reviewed the resident�s note and agree with findings and plan as documented in the resident�s note.
Patient with 5-day respiratory symptoms. She was working on her apartment to be cleaned up after the tendons left. She had nonproductive cough with shortness of breath and palpitation. She has a history of COPD but no flares history recently.
She denied much of fever or chills. Remote history of pneumonia 12 years ago. She states she had and pneumonia shot. COVID-19 negative.
Chest x-ray suggested left basilar infiltrate with possible small left pleural effusion.
Suspected possible community-acquired pneumonia based on acute onset of symptoms and chest x-ray findings. Will start on ceftriaxone and doxycycline.
Known Paroxysmal A-fib with RVR-continue rate control per cardiology. She is now placed on anticoagulation. Previously she was not on anticoagulation because of low AF burden.
total time spent on today's encounter was 52 minutes which included time spent in counseling the patient regarding diagnosis and treatment plan as listed above, goals of care, and symptom management. Case was discussed with nursing staff,
specialists . All labs and imaging personally reviewed by me. Remainder the time spent in detailed review of previous records, lab data, imaging, and other medical provider documentation.
[2023-11-21] MEDS: NOVOLOG FLEXPEN-LOW RESISTANCE SC (17:09)
[2023-11-21] MEDS: STERILE WATER FOR INJECTION 10 ML IV (18:21)
[2023-11-21] MEDS: VIBRAMYCIN 100 MG PO (18:22)
[2023-11-21] MEDS: ROCEPHIN 1000 MG IV (18:22)
[2023-11-21] MEDS: TOPROL XL 50 MG PO (20:21)
[2023-11-21 22:15] LABS: Glucose - Point of Care 186 mg/dl (70-99)
[2023-11-22] VITALS (14 sets, daily range): BP systolic 145–187; BP diastolic 60–88; BMI 21.9
--- NOTE | 2023-11-22 03:01 | PTCARENOTE ---
Addendum entered by Julianna Bashir RN 11/22/23 03:44:
Pt converting into SR with 1ST Degree A-V Block and LBBB. EKG placed on chart. Cardizem gtt currently on 5mg/Hr. Pt HR 70's-90's.
Original Note:
Start of shift Pt continued on Cardizem gtt at 15mg/HR . Start of shift Pt received PRN Lopressor for SBP >160 along with ordered PO, Pt HR at time 130-150's BP 172/111. Medication effective, BP and HR within stable parameters at this
time.Currently at 10mg/HR with HR 80-100 while at rest.
[2023-11-22 04:07] LABS: % Basophils 0.9 % (0-2); % Eosinophils 4.2 % (0-6); % Immature Granulocytes 0.7 % (0-0.5); % Lymphocytes 13.5 % (20.5-51.1); % Monocytes 6.9 % (1.7-9.3); % Neutrophils 73.8 % (42.2-75.2); Absolute Basophils 0.1 10^3/uL (0-0.2); Absolute Eosinophils 0.5 10^3/uL (0-0.7); Absolute Immature Granulocytes 0.1 10^3/uL (0-0.05); Absolute Lymphocytes 1.6 10^3/uL (1.2-3.4); Absolute Monocytes 0.8 10^3/uL (0.1-0.6); Absolute Neutrophils 8.9 10^3/uL (1.4-6.5); Hematocrit 41.2 % (37.0-47.0); Hemoglobin 14.4 g/dL (12.0-16.0); Mean Corpuscular Hgb 30.6 pg (27.0-31.0); Mean Corpuscular Volume 87.5 fL (81.0-99.0); Mean Platelet Volume 8.9 fL (7.4-10.4); Nucleated Red Blood Cells % 0 %; Platelet Count 392 10^3/uL (130-400); Red Blood Cell Count 4.71 10^6/uL (4.20-5.40); Red Cell Dist. Width 14.8 % (11.5-14.5); White Blood Cell Count 12.1 10^3/uL (4.8-10.8)
[2023-11-22 04:30] LABS: Blood Urea Nitrogen 14 mg/dl (7-17); Calcium 9.4 mg/dl (8.4-10.2); Carbon Dioxide 27 mmol/L (22-30); Chloride 100 mmol/L (98-107); Estimated Creatinine Clearance 55 ml/min; Glucose 214 mg/dl (70-99); Magnesium 1.6 mg/dl (1.6-2.3); Potassium 3.5 mmol/L (3.5-5.1); Sodium 135 mmol/L (135-145); eGFR > 60.00
[2023-11-22 07:12] LABS: Glucose - Point of Care 214 mg/dl (70-99)
[2023-11-22] MEDS: STRIVERDI RESPIMAT 2 PUFF INH (07:31)
[2023-11-22] MEDS: SPIRIVA RESPIMAT 2.5 MCG 2 PUFF INH (07:31)
[2023-11-22] MEDS: CARDIZEM 125 IV (08:20)
[2023-11-22] MEDS: NOVOLOG FLEXPEN-MODERATE RESISTANCE 3 UNITS SC ×2 (08:20→12:29)
[2023-11-22] MEDS: ELIQUIS 5 MG PO ×2 (08:20→20:00)
[2023-11-22] MEDS: PROTONIX 20 MG PO (08:21)
[2023-11-22] MEDS: THERAGRAN 1 TABLET PO (08:21)
[2023-11-22] MEDS: VIBRAMYCIN 100 MG PO ×2 (08:22→19:58)
[2023-11-22] MEDS: MAGNESIUM OXIDE 500 MG PO ×2 (08:22→19:58)
[2023-11-22] MEDS: LASIX 20 MG IV ×2 (08:22→17:23)
[2023-11-22] MEDS: TOPROL XL 50 MG PO (08:22)
[2023-11-22] MEDS: CARDIZEM CD 180 MG PO ×2 (10:28→20:02)
[2023-11-22] MEDS: KCL 20 MEQ PO (10:28)
--- NOTE | 2023-11-22 10:29 | W.PN.CARDCBS ---
Addendum entered and electronically signed by Wang Roberto DO 11/22/23 10:54:
I saw and examined the patient.
The Outpatient Services Director's note was reviewed and I agree with the note.
Comment:
Patient seen and examined this morning. Patient return to sinus rhythm 11/22/2023 at 0229. Patient reports improvement in work of breathing still notes productive cough. Denies chest pain, lightheadedness, dizziness, near-syncope, syncope, edema,
or weakness. Remains on supplemental O2.
GEN: No distress, awake, alert, oriented x3. on supplemental oxygen
HEENT: supple, anicteric, mmm, EOMI
LUNGS: Diminished breath sounds with some expiratory wheezes
CV: Reg, S1/S2, 1/6 murmur
EXT: No cyanosis, clubbing, edema
NEURO: Gross non-focal
SKIN: Warm, pink, dry. No rash
A/P as below
Wean Cardizem transition to orals, increase Toprol-XL
Continue oral anticoagulation with Eliquis
Wean supplemental O2
Consider addition of Farxiga
Transition to oral Lasix tomorrow
Infection treatment per primary service
Original Note:
Today's Communication / Plan
-
Continue IV Lasix today with plan to transition to p.o. Lasix in a.m.
In sinus rhythm. Stop IV Cardizem. Transition back to p.o. Cardizem and Toprol (at increased dose). Continue Eliquis
Consider addition of Farxiga
Wean supplemental O2
Outpatient cardiac follow-up arranged
Impression / Plan
-
Primary Vice President Of Engineering: Dr. Sheldon
Assessment:
Presentation with SOB
Acute hypoxic respiratory insufficiency
Acute HFpEF
Possible PNA by CXR
Paroxysmal atrial fibrillation, now with RVR
Not chronically anticoagulated by patient preference due to historically low burden
COPD
Hypertension
Hyperlipidemia
Prediabetes
Chronic left bundle branch block
Peripheral vascular disease with prior right SFA stent 2016
IV dye allergy
Former smoker
Echo 09/26/2021: EF 55 to 60%, mild LVH, MAC, mild MR, dilated left atrium, aortic sclerosis, normal right heart
ECHO 11/21/2023: EF 53%, normal atria, moderate MR, mild TR, PAP 36 mmHg
Plan:
-Reports her breathing is much better today
-Continue treatment of pneumonia per primary service
-Remains on IV Lasix 20 mg twice daily with good diuresis overnight. Remains with some wheezing on exam and continues on supplemental O2. Cr stable. Will continue IV Lasix today and consider transition to p.o. in a.m. She was not on diuretic prior
to admission so would favor 20 mg p.o. daily upon discharge.
-Wean to room air as able
-CHF education
-consider addition of farxiga given new CHF diagnosis
-She converted to sinus rhythm around 2 AM. Stop IV Cardizem. Transition back to p.o. Cardizem 180 mg twice daily as was taking prior to admission. Will increase prior to admission Toprol to 100 mg twice daily
-Eliquis started this admission
-Echo with results as above, reviewed with patient 11/21
-consider OP EP eval to discuss ablation
-OP cardiac follow up arranged
-d/w nursing
Progress Note - Vice President Of Engineering
Subjective
Date of Service: November 22, 2023
Reports breathing much improved. Denies chest pain
Objective
Labs:
11/22/23 03:34
11/22/23 03:34
Labs
Hgb 14.4 g/dL (12.0-16.0) 11/22/23 03:34
Hct 41.2 % (37.0-47.0) 11/22/23 03:34
Plt Count 392 10^3/uL (130-400) 11/22/23 03:34
Sodium 135 mmol/L (135-145) 11/22/23 03:34
Potassium 3.5 mmol/L (3.5-5.1) 11/22/23 03:34
BUN 14 mg/dl (7-17) 11/22/23 03:34
Creatinine 0.8 mg/dL (0.6-1.0) 11/22/23 03:34
Glucose 214 mg/dl (70-99) H 11/22/23 03:34
Vital Signs and I&O:
Vital Signs
Temp Pulse Resp BP Pulse Ox
97.9 F 87 16 157/63 94
11/22/23 07:40 11/22/23 08:22 11/22/23 07:31 11/22/23 08:22 11/22/23 07:31
Vital Signs
Temp Pulse Resp BP Pulse Ox
97.9 F 87 16 157/63 94
11/22/23 07:40 11/22/23 08:22 11/22/23 07:31 11/22/23 08:22 11/22/23 07:31
Intake & Output
11/20/23 11/21/23 11/22/23 11/23/23
07:59 07:59 07:59 07:59
Intake Total 1780 / 1780
Output Total 1750 / 1750 550 / 550
Balance 30 / 30 -550 / -550
Physical Exam
Physical Exam
GEN: No distress, awake, alert, oriented x3. on supplemental oxygen
HEENT: supple, anicteric, mmm, EOMI
LUNGS: Diminished breath sounds with some expiratory wheezes
CV: Reg, S1/S2, 1/6 murmur
EXT: No cyanosis, clubbing, edema
NEURO: Gross non-focal
SKIN: Warm, pink, dry. No rash
--- NOTE | 2023-11-22 10:57 | W.PN.HOSP.TC ---
Documented by User: Min Arana MD, Resident 11/22/23 11:36
Today's Communication/Plan
-
Will continue IV Lasix today with plan to transition to oral Lasix tomorrow morning. Patient currently in sinus rhythm. Will stop IV Cardizem and transition back to oral Cardizem and metoprolol. Continue Eliquis. Cardiology is considering the
addition of Farxiga. Will attempt to wean supplemental oxygen as tolerated.
Assessment / Plan
Assessment / Plan
#Hypoxic resp insuff
2/2 heart failure vs pna.
90% RA, currently 94% on 4L O2 NC
Possibly PNA: viral vs bacterial vs pneumonitis. Covid negative, afebrile, WBC 10.6 on arrival -->12.1 today. Subjective fever/chills/malaise 5 days ago before onset of cough and worsening SOB. No recurrent fevers
-BNP 7320 on admission, bilateral LE edema. Mild crackles on RLL
-Echo -normal sinus rhythm has replaced atrial fibrillation, showed sinus rhythm with first-degree AV block and left bundle branch block.
-Continue Iv lasix 20 BID now -will transition to oral Lasix tomorrow
-Procal normal
-Restart Abx: Ceftriaxone and Doxycycline
#A-fib with RVR/history of paroxysmal A-fib every 5 years past 25 years
2D echo 09/26/2021: EF 55-60%, mild LVH, mild MR/dilated left atrium aortic sclerosis without stenosis and regurg, normal pulm arterial pressure
EKG: A-fib 85 bpm LBBB, QTc 468 MS no previous EKGs
TSH normal
-Appreciate cardiology input
-Transitioning back to p.o. Cardizem and Toprol at an increased dose. Continuing Eliquis
-For 2D echo.
#Elevated glucose:
BS 292
HbA1c 6.7 indicating Diabetes
-ISS, accuchecks, carb-controlled diet
#COPD hx
moderate to advanced on CT 04/16/2022�no wheezing on PE
Former smoker 45-year 1 pack a day quit 16 years ago
-Uses inhaler once a day
-Follows with Dr. Aranda
#HTN-benign
BP 172/85
-Metoprolol succinate 50 mg twice daily
#anxiety
cont citalopram
#GERD:
-Continue PPI
DVT prophylaxis: Eliquis
Full code
DATA:
CXR: Suspicious for mild pneumonia in the mid to left lower lung.
Small left pleural effusion.
COPD
Peripheral vascular ultrasound left leg negative for DVT
D echo 09/26/2021: EF 55-60%, mild LVH, mild MR/dilated left atrium aortic sclerosis without stenosis and regurg, normal pulm arterial pressure
EKG: A-fib 85 bpm LBBB, QTc 468 MS no previous EKGs
Anticipated Discharge: > 48 hours
Subjective/Interval History
-
Date of Service: November 22, 2023
Met with patient at the bedside. The patient is in a good mood and is talkative. She offers no complaints at the present time and shared her love for [employer]. She hopes to go and walk the unit today when she gets a chance.
Objective Data
-
Labs:
Laboratory Results
11/22/23
03:34
WBC 12.1 H
Hgb 14.4
Hct 41.2
Plt Count 392
Sodium 135
Potassium 3.5
Chloride 100
Carbon Dioxide 27
BUN 14
Creatinine 0.8
Glucose 214 H
Calcium 9.4
Vital Signs:
Vital Signs
Temp Pulse Resp BP Pulse Ox
97.9 F 87 16 157/63 94
11/22/23 07:40 11/22/23 08:22 11/22/23 07:31 11/22/23 08:22 11/22/23 07:31
I&O
11/21/23 11/22/23 11/23/23
06:59 06:59 06:59
Intake Total 1780 / 1780
Output Total 1750 / 1750 550 / 550
Balance 30 / 30 -550 / -550
Review of Systems
-
History Source: Patient
All other systems: Reviewed and negative
Physical Exam
-
General: Well Developed, Well Nourished, No Apparent Distress and Comfortable
HEENT: Normocephalic and Atraumatic
Respiratory: Clear to Auscultation
Cardiac: Regular Rhythm and S1/S2
Breast: Deferred by me
GI: Soft, Nontender, Nondistended and Normal Bowel Sounds
Rectal: Deferred by Provider
Genito-urinary: Deferred by me
Musculoskeletal: No Clubbing, No Cyanosis, Edema, Right Lower Extrem (1+) and Edema, Left Lower Extrem (1+)
Skin: Warm and Dry
Neuro: Nonfocal/Grossly Intact

Documented by User: Stevo Bynum MD 11/22/23 11:47
Assessment / Plan
Assessment / Plan
#SOB with Hypoxic respiratory insufficiency
2/2 heart failure vs pna.
90% RA, currently 94% on 4L O2 NC
Possibly PNA: Covid negative, afebrile, WBC 10.6 on arrival -->12.1 today. Subjective fever/chills/malaise 5 days ago before onset of cough and worsening SOB. No recurrent fevers. CXR with left basal infiltrate with small possible pleural effusion
-BNP 7320 on admission, bilateral LE edema. Mild crackles on RLL
-Echo -normal sinus rhythm has replaced atrial fibrillation, showed sinus rhythm with first-degree AV block and left bundle branch block.
-Continue Iv lasix 20 BID now -will transition to oral Lasix tomorrow
-Procal normal
-cw Abx: Ceftriaxone and Doxycycline
#A-fib with RVR/history of paroxysmal A-fib every 5 years past 25 years
2D echo 09/26/2021: EF 55-60%, mild LVH, mild MR/dilated left atrium aortic sclerosis without stenosis and regurg, normal pulm arterial pressure
EKG: A-fib 85 bpm LBBB, QTc 468 MS no previous EKGs
TSH normal
-Appreciate cardiology input
-Transitioning back to p.o. Cardizem and Toprol at an increased dose. Continuing Eliquis
-For 2D echo.
#Elevated glucose:
BS 292
HbA1c 6.7 indicating Diabetes
-ISS, accuchecks, carb-controlled diet
#COPD hx
moderate to advanced on CT 04/16/2022�no wheezing on PE
Former smoker 45-year 1 pack a day quit 16 years ago
-Uses inhaler once a day
-Follows with Dr. Aranda
#HTN-benign
BP 172/85
-Metoprolol succinate 50 mg twice daily
#anxiety
cont citalopram
#GERD:
-Continue PPI
DVT prophylaxis: Eliquis
Full code
--- NOTE | 2023-11-22 11:42 | W.PN.UPDATE ---
Update Note
Progress Note Update
I saw and evaluated the patient. I reviewed the resident�s note and agree with findings and plan as documented in the resident�s note.
Patient feels improved with her breathing.
No chest pains.
Afebrile. Hemodynamically stable. Rate controlled A-fib better but still on IV Cardizem infusion.
Chest sounds clear without wheeze or crackles.
A-fib but is now rate controlled. Continue with rate control medication and anticoagulation. Plan for cardioversion noted for Friday if still remains in A-fib.
Possible left lower lobe pneumonia. No immediate complications. Continue with antibiotics for community-acquired pneumonia. COPD without flare currently.
[2023-11-22 11:54] LABS: Glucose - Point of Care 230 mg/dl (70-99)
[2023-11-22] MEDS: LOPRESSOR 5 MG IV ×2 (14:09→22:42)
[2023-11-22 16:42] LABS: Glucose - Point of Care 153 mg/dl (70-99)
[2023-11-22] MEDS: NOVOLOG FLEXPEN-MODERATE RESISTANCE 1 UNITS SC (17:24)
[2023-11-22] MEDS: STERILE WATER FOR INJECTION 10 ML IV (17:26)
[2023-11-22] MEDS: ROCEPHIN 1000 MG IV (17:26)
--- NOTE | 2023-11-22 18:28 | PTCARENOTE ---
Assumed care of pt from previous RN. Pt AAOx3, SR on the monitor. Full assessment documented in worklist. Cardizem gtt d/c. PO cardizem ordered per cardiology. IV lasix given w/ good urine output. Pt offering no complaints throughout shift. able to
make needs known. Call knapp within reach.
[2023-11-22] MEDS: TYLENOL 650 MG PO (19:59)
[2023-11-22] MEDS: TOPROL XL 100 MG PO (20:02)
[2023-11-22 21:29] LABS: Glucose - Point of Care 219 mg/dl (70-99)
[2023-11-22] MEDS: CELEXA 10 MG PO (22:35)
[2023-11-23] VITALS (14 sets, daily range): BP systolic 137–172; BP diastolic 59–86; PULSE 81; O2SAT 95; BMI 21.9
--- NOTE | 2023-11-23 06:40 | PTCARENOTE ---
Pt able to be weaned to 2L NC SPO2 95% tolerating well. Pt remains hypertensive prn Lopressor given (see mar).
[2023-11-23] MEDS: STRIVERDI RESPIMAT 2 PUFF INH (07:19)
[2023-11-23] MEDS: SPIRIVA RESPIMAT 2.5 MCG 2 PUFF INH (07:19)
[2023-11-23 07:29] LABS: % Eosinophils 5.5 % (0-6); % Immature Granulocytes 0.6 % (0-0.5); % Lymphocytes 13.3 % (20.5-51.1); % Monocytes 7.4 % (1.7-9.3); % Neutrophils 72.2 % (42.2-75.2); Absolute Basophils 0.1 10^3/uL (0-0.2); Absolute Eosinophils 0.6 10^3/uL (0-0.7); Absolute Immature Granulocytes 0.1 10^3/uL (0-0.05); Absolute Lymphocytes 1.5 10^3/uL (1.2-3.4); Absolute Monocytes 0.9 10^3/uL (0.1-0.6); Absolute Neutrophils 8.4 10^3/uL (1.4-6.5); Hematocrit 43.4 % (37.0-47.0); Hemoglobin 15.3 g/dL (12.0-16.0); Mean Corp Hgb Conc. 35.3 g/dL (33.0-37.0); Mean Corpuscular Hgb 30.5 pg (27.0-31.0); Mean Corpuscular Volume 86.5 fL (81.0-99.0); Mean Platelet Volume 8.7 fL (7.4-10.4); Nucleated Red Blood Cells % 0 %; Platelet Count 388 10^3/uL (130-400); Red Blood Cell Count 5.02 10^6/uL (4.20-5.40); Red Cell Dist. Width 14.7 % (11.5-14.5); White Blood Cell Count 11.6 10^3/uL (4.8-10.8)
[2023-11-23 07:31] LABS: Glucose - Point of Care 211 mg/dl (70-99)
[2023-11-23 07:41] LABS: Blood Urea Nitrogen 21 mg/dl (7-17); Calcium 9.7 mg/dl (8.4-10.2); Carbon Dioxide 31 mmol/L (22-30); Chloride 97 mmol/L (98-107); Estimated Creatinine Clearance 49 ml/min; Glucose 202 mg/dl (70-99); Potassium 4.1 mmol/L (3.5-5.1); Sodium 134 mmol/L (135-145); eGFR > 60.00
[2023-11-23] MEDS: NOVOLOG FLEXPEN-MODERATE RESISTANCE 3 UNITS SC (08:08)
[2023-11-23] MEDS: ELIQUIS 5 MG PO ×2 (08:09→20:35)
[2023-11-23] MEDS: TOPROL XL 100 MG PO ×2 (08:09→20:35)
[2023-11-23] MEDS: VIBRAMYCIN 100 MG PO ×2 (08:09→20:34)
[2023-11-23] MEDS: PROTONIX 20 MG PO (08:09)
[2023-11-23] MEDS: THERAGRAN 1 TABLET PO (08:09)
[2023-11-23] MEDS: CARDIZEM CD 180 MG PO ×2 (08:09→20:34)
[2023-11-23] MEDS: MAGNESIUM OXIDE 500 MG PO ×2 (08:09→20:34)
[2023-11-23] MEDS: LASIX 20 MG IV ×2 (08:10→16:59)
--- NOTE | 2023-11-23 08:44 | W.PN.UPDATE ---
Update Note
Progress Note Update
I saw and evaluated the patient. I reviewed the resident�s note and agree with findings and plan as documented in the resident�s note.
Patient today without any complaints. Denies any chest pain or shortness of breath.
Afeb.HD stable.
She has converted to sinus rhythm yesterday and remained so today. Hemodynamically stable. Requiring minimal oxygen. Chest today sounds clear to me. No added sounds. No respiratory distress.
Paroxysmal atrial fibrillation with RVR-currently in sinus rhythm. Continue with medical treatment and anticoagulation with cardiology.
Possible left lower lobe hqrsyflbw-adfcslcve-[id number]-continue with empirical antibiotics. Afebrile and white count improving.
Acute hypoxic respite insufficiency possibly combination of pneumonia and this seems to be in concern for element of acute diastolic heart failure. Continue antibiotics and diuretics. Wean oxygen as able.
COPD without flare.
DC planning
--- NOTE | 2023-11-23 11:23 | PTCARENOTE ---
Per Dr. Bynum and Dr. Arana request, this RN attempted to wean pt to room air. Pt SpO2 dropped to 85%. Pt placed back on 2L NC. Both updated.
[2023-11-23 12:12] LABS: Glucose - Point of Care 255 mg/dl (70-99)
[2023-11-23] MEDS: NOVOLOG FLEXPEN-MODERATE RESISTANCE 5 UNITS SC (12:25)
[2023-11-23] MEDS: TYLENOL 650 MG PO ×2 (13:20→20:35)
--- NOTE | 2023-11-23 13:27 | W.PN.HOSP.TC ---
Today's Communication/Plan
-
Patient converted to sinus rhythm yesterday and has remained in sinus rhythm today continue with medical treatment and anticoagulation. Cardiology continues to follow. Continuing empiric antibiotics for possible community-acquired left lower lobe
pneumonia. Continue antibiotics and diuretics and slowly wean oxygen as able. Once patient is stable we will move forward with discharge planning.
Assessment / Plan
Assessment / Plan
#SOB with Hypoxic respiratory insufficiency
2/2 heart failure vs pna.
90% RA, currently 94% on 4L O2 NC
Possibly PNA: Covid negative, afebrile, WBC 10.6 on arrival -->12.1 today. Subjective fever/chills/malaise 5 days ago before onset of cough and worsening SOB. No recurrent fevers. CXR with left basal infiltrate with small possible pleural effusion
-BNP 7320 on admission, bilateral LE edema. Mild crackles on RLL
-Echo -normal sinus rhythm has replaced atrial fibrillation, showed sinus rhythm with first-degree AV block and left bundle branch block.
-Continue Iv lasix 20mg
-Procal normal
-cw Abx: Ceftriaxone and Doxycycline
-Trial was attempted on room air and unfortunately her oxygen saturation dropped to 85%. Returned to 2 L nasal cannula
-
#A-fib with RVR/history of paroxysmal A-fib every 5 years past 25 years
2D echo 09/26/2021: EF 55-60%, mild LVH, mild MR/dilated left atrium aortic sclerosis without stenosis and regurg, normal pulm arterial pressure
EKG: A-fib 85 bpm LBBB, QTc 468 MS no previous EKGs
TSH normal
-Appreciate cardiology input
-Transitioning back to p.o. Cardizem and Toprol at an increased dose. Continuing Eliquis
-For 2D echo.
#Elevated glucose:
BS 292
HbA1c 6.7 indicating Diabetes
-ISS, accuchecks, carb-controlled diet
#COPD hx
moderate to advanced on CT 04/16/2022�no wheezing on PE
Former smoker 45-year 1 pack a day quit 16 years ago
-Uses inhaler once a day
-Follows with Dr. Aranda
#HTN-benign
BP 172/85
-Metoprolol succinate 50 mg twice daily
#anxiety
cont citalopram
#GERD:
-Continue PPI
DVT prophylaxis: Eliquis
Full code
Anticipated Discharge: 24 - 48 hours
Subjective/Interval History
-
Date of Service: November 23, 2023
Met with patient at the bedside. She is in a good mood and states that she continues to feel slightly better each day. She was out of bed and sitting while watching TV. She spent some time talking about how things that are made should be made
more sustainable and in a way that does not harm the environment. She referred to glass jugs that used to be used for milk containers prior to plastic.
Objective Data
-
Labs:
Laboratory Results
11/23/23
Unknown
WBC 11.6 H
Hgb 15.3
Hct 43.4
Plt Count 388
Sodium 134 L
Potassium 4.1
Chloride 97 L
Carbon Dioxide 31 H
BUN 21 H
Creatinine 0.9
Glucose 202 H
Calcium 9.7
Vital Signs:
Vital Signs
Temp Pulse Resp BP Pulse Ox
98.5 F 81 18 148/69 96
11/23/23 13:07 11/23/23 12:00 11/23/23 12:00 11/23/23 12:00 11/23/23 09:16
I&O
11/22/23 11/23/23 11/24/23
06:59 06:59 06:59
Intake Total 1780 / 1780
Output Total 1750 / 1750 1949 / 1949 200 / 200
Balance 30 30 -1950 / -1950 -200 / -200
Review of Systems
-
History Source: Patient
All other systems: Reviewed and negative
Physical Exam
-
General: Well Developed, Well Nourished, No Apparent Distress and Comfortable
HEENT: Normocephalic and Atraumatic
Respiratory: Clear to Auscultation
Cardiac: Regular Rhythm and S1/S2
Breast: Deferred by me
GI: Soft, Nontender, Nondistended and Normal Bowel Sounds
Rectal: Deferred by Provider
Genito-urinary: Deferred by me
Musculoskeletal: No Clubbing and No Cyanosis
Skin: Warm and Dry
Neuro: Nonfocal/Grossly Intact
--- NOTE | 2023-11-23 15:58 | CHAP ---
Visited [place] at 10:25. She was in good spirits, looking forward to going home. Emotional and spiritual support provided.
[2023-11-23 16:30] LABS: Glucose - Point of Care 176 mg/dl (70-99)
[2023-11-23] MEDS: NOVOLOG FLEXPEN-MODERATE RESISTANCE 1 UNITS SC (16:57)
[2023-11-23] MEDS: ROCEPHIN 1000 MG IV (17:01)
[2023-11-23] MEDS: STERILE WATER FOR INJECTION 10 ML IV (17:01)
--- NOTE | 2023-11-23 17:08 | W.PN.CARDCBS ---
Today's Communication / Plan
-
Continue IV diuresis with plan for p.o. next 24-48 hours
Resume ELVIS inhibitor (enalapril 10 mg twice daily) her previous home dose
Monitor intake/output, renal function, electrolytes
ABX per primary service
Impression / Plan
-
Primary Driller'S Assistant: Dr. Sheldon
Assessment:
Presentation with SOB
Acute hypoxic respiratory insufficiency
Acute HFpEF
Possible PNA by CXR
Paroxysmal atrial fibrillation, now with RVR
Not chronically anticoagulated by patient preference due to historically low burden
COPD
Hypertension
Hyperlipidemia
Prediabetes
Chronic left bundle branch block
Peripheral vascular disease with prior right SFA stent 2016
IV dye allergy
Former smoker
Echo 09/26/2021: EF 55 to 60%, mild LVH, MAC, mild MR, dilated left atrium, aortic sclerosis, normal right heart
ECHO 11/21/2023: EF 53%, normal atria, moderate MR, mild TR, PAP 36 mmHg
Plan:
-Reports her breathing is much better today
-Continue treatment of pneumonia per primary service
-Remains on IV Lasix 20 mg twice daily with good diuresis overnight. Remains with some wheezing on exam and continues on supplemental O2. Cr stable. Will continue IV Lasix today and consider transition to p.o. in a.m. She was not on diuretic prior
to admission so would favor 20 mg p.o. daily upon discharge.
-Wean to room air as able
-CHF education
-consider addition of farxiga given new CHF diagnosis
-She converted to sinus rhythm around 2 AM. Stop IV Cardizem. Transition back to p.o. Cardizem 180 mg twice daily as was taking prior to admission. Will increase prior to admission Toprol to 100 mg twice daily
-Metoprolol increased to 100 mg BID
-Resumed ACEi in setting of hypertension
-Elianika started this admission
-Echo with results as above, reviewed with patient 11/21
-consider OP EP eval to discuss ablation
-OP cardiac follow up arranged
-d/w nursing
Progress Note - Driller'S Assistant
Subjective
Date of Service: November 23, 2023
Patient seen and examined his morning. No acute overnight. Patient resting comfortably in chair. Patient notes appropriate urine output and improvement in shortness of breath. Patient denies chest pain, lightheadedness, dizziness, palpitations,
or syncope. Patient remains sinus rhythm on telemetry. Notes mild shortness of breath remains on nasal cannula and productive cough.
Objective
Labs:
11/23/23 Unknown
11/23/23 Unknown
Labs
Hgb 15.3 g/dL (12.0-16.0) 11/23/23 Unknown
Hct 43.4 % (37.0-47.0) 11/23/23 Unknown
Plt Count 388 10^3/uL (130-400) 11/23/23 Unknown
Sodium 134 mmol/L (135-145) L 11/23/23 Unknown
Potassium 4.1 mmol/L (3.5-5.1) 11/23/23 Unknown
BUN 21 mg/dl (7-17) H 11/23/23 Unknown
Creatinine 0.9 mg/dL (0.6-1.0) 11/23/23 Unknown
Glucose 202 mg/dl (70-99) H 11/23/23 Unknown
Vital Signs and I&O:
Vital Signs
Temp Pulse Resp BP Pulse Ox
98.6 F 81 18 148/69 96
11/23/23 15:36 11/23/23 12:00 11/23/23 12:00 11/23/23 12:00 11/23/23 09:16
Vital Signs
Temp Pulse Resp BP Pulse Ox
98.6 F 81 18 148/69 96
11/23/23 15:36 11/23/23 12:00 11/23/23 12:00 11/23/23 12:00 11/23/23 09:16
Intake & Output
11/21/23 11/22/23 11/23/23 11/24/23
06:59 06:59 06:59 06:59
Intake Total 1779
Output Total 1749 200 / 200
Balance -1949 / -1950 -200 / -200
Physical Exam
Physical Exam
GEN: No distress, awake, alert, oriented x3. on supplemental oxygen
HEENT: supple, anicteric, mmm, EOMI
LUNGS: Diminished breath sounds with some expiratory wheezes
CV: Reg, S1/S2, 1/6 murmur
EXT: No cyanosis, clubbing, edema
NEURO: Gross non-focal
SKIN: Warm, pink, dry. No rash
[2023-11-23] MEDS: VASOTEC 10 MG PO (20:34)
[2023-11-23 21:19] LABS: Glucose - Point of Care 212 mg/dl (70-99)
[2023-11-23] MEDS: CELEXA 10 MG PO (21:57)
[2023-11-24] VITALS (8 sets, daily range): BP systolic 134–169; BP diastolic 58–69; O2SAT 88–92; BMI 21.7
--- NOTE | 2023-11-24 02:33 | PTCARENOTE ---
Pt AAOx3. Pt SPO2 93% on 1L NC. Call knapp with in reach. Assessment care and vitals as charted.
[2023-11-24 05:43] LABS: % Basophils 0.7 % (0-2); % Eosinophils 5.1 % (0-6); % Immature Granulocytes 0.7 % (0-0.5); % Lymphocytes 14.9 % (20.5-51.1); % Monocytes 8.7 % (1.7-9.3); % Neutrophils 69.9 % (42.2-75.2); Absolute Basophils 0.1 10^3/uL (0-0.2); Absolute Eosinophils 0.6 10^3/uL (0-0.7); Absolute Immature Granulocytes 0.1 10^3/uL (0-0.05); Absolute Lymphocytes 1.6 10^3/uL (1.2-3.4); Absolute Monocytes 0.9 10^3/uL (0.1-0.6); Absolute Neutrophils 7.5 10^3/uL (1.4-6.5); Hematocrit 37.8 % (37.0-47.0); Hemoglobin 13.6 g/dL (12.0-16.0); Mean Corpuscular Hgb 29.8 pg (27.0-31.0); Mean Corpuscular Volume 82.9 fL (81.0-99.0); Mean Platelet Volume 8.8 fL (7.4-10.4); Nucleated Red Blood Cells % 0 %; Platelet Count 369 10^3/uL (130-400); Red Blood Cell Count 4.56 10^6/uL (4.20-5.40); Red Cell Dist. Width 14.7 % (11.5-14.5); White Blood Cell Count 10.8 10^3/uL (4.8-10.8)
[2023-11-24 06:05] LABS: Blood Urea Nitrogen 22 mg/dl (7-17); Calcium 9.4 mg/dl (8.4-10.2); Carbon Dioxide 29 mmol/L (22-30); Chloride 95 mmol/L (98-107); Estimated Creatinine Clearance 49 ml/min; Glucose 206 mg/dl (70-99); Potassium 3.8 mmol/L (3.5-5.1); Sodium 131 mmol/L (135-145); eGFR > 60.00
[2023-11-24] MEDS: SPIRIVA RESPIMAT 2.5 MCG 2 PUFF INH (07:34)
[2023-11-24] MEDS: STRIVERDI RESPIMAT 2 PUFF INH (07:34)
[2023-11-24 07:47] LABS: Glucose - Point of Care 242 mg/dl (70-99)
--- NOTE | 2023-11-24 08:33 | W.PN.CARDCBS ---
Today's Communication / Plan
-
Remains sinus rhythm.
Cont Eliquis
Cont Cardizem and Metoprolol for rate control and HTN. Metoprolol was increased this admit to 100 mg BID
Can discuss rhythm control therapy as outpt.
Consider an outpt monitor to discuss burden. Can place monitor after outpt visit.
Appears euvolemic. Transition to oral lasix 20 mg daily.
Echo reviewed and EF preserved
She is down 6 lbs. Her outpt office wt was 140 and her current wt is 138.
Will arrange outpt follow up.
Please recall if needed.
Impression / Plan
-
.
Primary Tool Analyst: Dr. Sheldon
Impression:
Presentation with SOB
Acute hypoxic respiratory insufficiency
Acute HFpEF
Possible PNA by CXR
Paroxysmal atrial fibrillation, now with RVR
Not chronically anticoagulated by patient preference due to historically low burden
COPD
Hypertension
Hyperlipidemia
Prediabetes
Chronic left bundle branch block
Peripheral vascular disease with prior right SFA stent 2016
IV dye allergy
Former smoker
Echo 09/26/2021: EF 55 to 60%, mild LVH, MAC, mild MR, dilated left atrium, aortic sclerosis, normal right heart
ECHO 11/21/2023: EF 53%, normal atria, moderate MR, mild TR, PAP 36 mmHg
Plan:
Remains sinus rhythm.
Cont Eliquis
Cont Cardizem and Metoprolol for rate control and HTN. Metoprolol was increased this admit to 100 mg BID
Can discuss rhythm control therapy as outpt.
Consider an outpt monitor to discuss burden. Can place monitor after outpt visit.
Appears euvolemic. Transition to oral lasix 20 mg daily.
Echo reviewed and EF preserved
She is down 6 lbs. Her outpt office wt was 140 and her current wt is 138.
Tx of PNA as per primary service.
Discussed with primary service.
Will arrange outpt follow up.
Please recall if needed.
Progress Note - Tool Analyst
Subjective
Date of Service: November 24, 2023
Pt seen and examined. No complaints. No chest pain or shortness of breath.
Objective
Labs:
11/24/23 05:15
11/24/23 05:15
Labs
Hgb 13.6 g/dL (12.0-16.0) 11/24/23 05:15
Hct 37.8 % (37.0-47.0) 11/24/23 05:15
Plt Count 369 10^3/uL (130-400) 11/24/23 05:15
Sodium 131 mmol/L (135-145) L 11/24/23 05:15
Potassium 3.8 mmol/L (3.5-5.1) 11/24/23 05:15
BUN 22 mg/dl (7-17) H 11/24/23 05:15
Creatinine 0.9 mg/dL (0.6-1.0) 11/24/23 05:15
Glucose 206 mg/dl (70-99) H 11/24/23 05:15
Vital Signs and I&O:
Vital Signs
Temp Pulse Resp BP Pulse Ox
98.3 F 74 16 145/58 95
11/24/23 07:20 11/24/23 07:40 11/24/23 07:40 11/24/23 04:00 11/24/23 07:40
Vital Signs
Temp Pulse Resp BP Pulse Ox
98.3 F 74 16 145/58 95
11/24/23 07:20 11/24/23 07:40 11/24/23 07:40 11/24/23 04:00 11/24/23 07:40
Intake & Output
11/22/23 11/23/23 11/24/23 11/25/23
06:59 06:59 06:59 06:59
Intake Total 1779 580 / 580
Output Total 1749 200 / 200
Balance -1949 380 / 380
Physical Exam
Physical Exam
General: No acute distress, AAOX3
Neck: Negative JVD
Heart: Regular, Negative S3 positive S1/S2, Negative S4, No murmur
Lungs: CTA b/l, negative wheezes/rales/rhonchi
Abd: Positive BS, NT/ND, neg rebound/rigidity/guarding
Ext: Negative cyanosis/clubbing/edema
Neuro: nonfocal
[2023-11-24] MEDS: NOVOLOG FLEXPEN-MODERATE RESISTANCE 3 UNITS SC (08:35)
[2023-11-24] MEDS: VASOTEC 10 MG PO (08:36)
[2023-11-24] MEDS: TOPROL XL 100 MG PO (08:36)
[2023-11-24] MEDS: CARDIZEM CD 180 MG PO (08:36)
[2023-11-24] MEDS: PROTONIX 20 MG PO (08:36)
[2023-11-24] MEDS: THERAGRAN 1 TABLET PO (08:37)
[2023-11-24] MEDS: LASIX 20 MG IV (08:37)
[2023-11-24] MEDS: ELIQUIS 5 MG PO (08:37)
[2023-11-24] MEDS: MAGNESIUM OXIDE 500 MG PO (08:37)
[2023-11-24] MEDS: VIBRAMYCIN 100 MG PO (08:37)
[2023-11-24] MEDS: TYLENOL 650 MG PO (09:38)
[2023-11-24 11:35] LABS: Glucose - Point of Care 279 mg/dl (70-99)
--- NOTE | 2023-11-24 12:00 | W.DCSUMMARY ---
Addendum entered and electronically signed by Rose Marie Kiser MD 11/24/23 20:01:
Read, reviewed, and agree. See same day progress note for additional details. Time spent coordinating care, DC planning, review of DC plan of care with resident, transition of care, review of records in EMR, med rec, consults, notes, d/w
consultants, nursing, family, and CM = 31 minutes.
I saw and examined the patient independently.
GENERAL: well developed, well nourished, female in no apparent distress
HEENT: NC/AT--no O2
HEART: regular rate and rhythm, +S1, +S2
LUNGS : clear to auscultation bilaterally
ABDOM: soft, nontender, nondistended, + bowel sounds
EXT: no cyanosis, clubbing, or edema
NEUROLOGIC: grossly intact
Original Note:
Discharge Summary
Discharge Data
Date of Admission: 11/20/23
Date of Discharge: 11/24/23
-
Pending Results: No
Hospital Course
Primary diagnosis:
Paroxysmal atrial fibrillation with rapid ventricular response
Heart failure
Community acquired pneumonia
Secondary diagnosis:
Hypertension
Chronic obstructive pulmonary disease
Anxiety
Gastro esophageal reflux disease
Prediabetes
Patient is a 78-year-old female who presented with to the emergency department with a 5-day history of cough, shortness of breath, fever and palpitations. The patient was hypoxic (85%) and tachycardic (HR 140) upon admission at room air. Did not
note abdominal pain weight gain nausea vomiting diarrhea or chest pain. Patient had elevated BNP. COVID-negative. Chest x-ray was suspicious for mid to left lower lung pneumonia with small left-sided pleural effusion. On echocardiogram patient
had LBBB which seem to be chronic. Antibiotics (ceftriaxone and doxycycline) were started for the patient likely in the setting of community-acquired pneumonia. on echo patient had an ejection fraction of 55-60%, mild LVH, mild MR. Per cardiology
consult metoprolol dose was increased to 100 mg BD, ELVIS inhibitor was resumed along with antibiotics and IV diuresis, and Eliquis was started for the patient due to history of A-fib. During hospitalization patient was noted to have high glucose
levels per cardiology consult, Farxiga is recommended.
WBC count had a decreasing trend. WBC today is 10.8. Vital signs are stable. Patient feels good and was discharged to home with amoxicillin for 7 days, metoprolol 100 mg BD, Eliquis.
Discharge Plan
-
Patient Disposition: Home (Routine Discharge)
Discharge Diagnosis/Procedures: Community acquired pneumonia, heart failure with preserved ejection fraction, paroxysmal atrial fibrillation with rapid ventricular response
Condition: Fair
Diet: 2 Gram Sodium
Activity: No restrictions
Driving Restrictions: As prior to admission
Bathing Restrictions: None
Blood Work: BMP in 1 week
Specialty Instructions: Weigh Daily- Call MD for wt gain/loss 3 lbs overnight/5 lbs in 1 week
Instructions: *[facility] Heart Failure Instructions
Referrals:
Gerson Sheldon DO [Active] - 12/02/23 10:40 am (You have a cardiology follow up appointment at the [place] office. Please call with questions. )
Wang Cooley MD [Family Provider] -
Prescriptions:
New
metoprolol succinate 100 mg Tablet Extended Release 24 Hr
100 mg PO BID 30 Days Qty: 60 0RF
Eliquis 5 mg Tablet
5 mg PO BID 30 Days Qty: 60 3RF
amoxicillin-pot clavulanate 500-125 mg tablet
1 tab PO BID 7 Days Qty: 14 0RF
Continued
Stiolto Respimat 2.5-2.5 mcg/actuation Mist
2 puff INHALATION DAILY
enalapril maleate 10 mg tablet
10 mg PO BID
diltiazem HCl 180 mg capsule,extended release 24hr
180 mg PO BID
multivitamin Tablet
1 tab PO DAILY
citalopram 10 mg tablet
10 mg PO HS
omeprazole 10 mg Capsule,Delayed Release(Dr/Ec)
10 mg PO DAILY
aspirin 81 mg Tablet,Chewable
81 mg PO DAILY
bisacodyl [Dulcolax (bisacodyl)] 5 mg Tablet,Delayed Release (Dr/Ec)
15 mg PO DAILY
albuterol sulfate 90 mcg/actuation Hfa Aerosol Inhaler
2 puff INHALATION QID PRN (Reason: shortness of breath)
cholecalciferol (vitamin D3) [Vitamin D3] 25 mcg (1,000 unit) Tablet
25 mcg PO DAILY
Discontinued
metoprolol succinate 50 mg tablet extended release 24 hr
75 mg PO BID
Discharge Orders:
Discharge Patient (As Directed); Ordered 11/24/23
Ordered By: Roula Mcgee
Discharge Date and Time
Discharge Date/Time: 11/24/23 14:34
Print Language: [id number]
[2023-11-24] MEDS: NOVOLOG FLEXPEN-MODERATE RESISTANCE 5 UNITS SC (12:04)
--- NOTE | 2023-11-24 13:50 | CM ---
Patient seen at bedside with physician. Patient eager to go home. IMM completed and signed form placed on chart. CM will continue to follow for discharge planning needs.
Plan;home with no need.
== END 2023-11-24 14:34 | disposition home or self-care (01) | DRG 193 ==
LOC: IMU 20:32
PROVIDERS: Clinical Nurse Specialist Family Health; Emergency Medicine; ADMITTING PHYSICIAN Hospitalist; ATTENDING PHYSICIAN Internal Medicine; EMERGENCY PHYSICIAN Emergency Medicine; FAMILY PHYSICIAN Family Medicine; OTHER PHYSICIAN Internal Medicine Cardiovascular Disease
DX: J18.9 Pneumonia, unspecified organism (principal); I50.31 Acute diastolic (congestive) heart failure; J44.0 Chronic obstructive pulmonary disease with (acute) lower respiratory infection; R09.02 Hypoxemia; I48.0 Paroxysmal atrial fibrillation; I11.0 Hypertensive heart disease with heart failure; R06.89 Other abnormalities of breathing; I44.7 Left bundle-branch block, unspecified; E11.65 Type 2 diabetes mellitus with hyperglycemia; E11.51 Type 2 diabetes mellitus with diabetic peripheral angiopathy without gangrene; F41.9 Anxiety disorder, unspecified; I70.0 Atherosclerosis of aorta; E78.5 Hyperlipidemia, unspecified; K21.9 Gastro-esophageal reflux disease without esophagitis; Z87.891 Personal history of nicotine dependence; Z88.6 Allergy status to analgesic agent; Z91.041 Radiographic dye allergy status; Z88.5 Allergy status to narcotic agent; Z91.013 Allergy to seafood; Z87.01 Personal history of pneumonia (recurrent); Z11.52 Encounter for screening for COVID-19; Z79.82 Long term (current) use of aspirin
CPT/HCPCS: 71046; 80048; 80053; 82962; 83036; 83735; 83880; 84145; 84443; 85025; 87811; 93005; 93306; 93971; 94640; 96365; 96375; 97163; 97167; 97530; 99291

== ENCOUNTER → 2023-12-24 10:50 | Outpatient (REF) | payer MEDICARE, SELFPAY | LOC: HWRAD 10:50 | PROVIDERS: ATTENDING PHYSICIAN Family Medicine | DX: J18.9 Pneumonia, unspecified organism (principal) | CPT/HCPCS: 71046 ==

== ENCOUNTER → 2024-01-15 11:17 | Outpatient (REF) | payer MEDICARE, SELFPAY | LOC: HWRAD 11:17 | PROVIDERS: ATTENDING PHYSICIAN Family Medicine | DX: J18.9 Pneumonia, unspecified organism (principal) | CPT/HCPCS: 71046 ==

== ENCOUNTER → 2024-01-20 11:47 | Outpatient (REF) | payer MEDICARE, SELFPAY | LOC: HWRAD 11:47 | PROVIDERS: ATTENDING PHYSICIAN Internal Medicine Critical Care Medicine; FAMILY PHYSICIAN Family Medicine; REFERRING PHYSICIAN Nuclear Medicine Nuclear Cardiology | DX: R93.89 Abnormal findings on diagnostic imaging of other specified body structures (principal) | CPT/HCPCS: 71250 ==

== ENCOUNTER → 2024-03-17 10:49 | Outpatient (REF) | payer MEDICARE, SELFPAY | LOC: HWRAD 10:49 | PROVIDERS: ATTENDING PHYSICIAN Internal Medicine Critical Care Medicine; FAMILY PHYSICIAN Family Medicine | DX: R93.89 Abnormal findings on diagnostic imaging of other specified body structures (principal) | CPT/HCPCS: 71250 ==

== ENCOUNTER → 2024-05-12 13:44 | Outpatient (REF) | payer MEDICARE, SELFPAY | LOC: RAD 13:44 | PROVIDERS: ATTENDING PHYSICIAN Nuclear Medicine Nuclear Cardiology; FAMILY PHYSICIAN Family Medicine | DX: I73.9 Peripheral vascular disease, unspecified (principal) | CPT/HCPCS: 93922; 93925 ==

== ENCOUNTER 2024-06-08 13:08 | Emergency (ER) | payer MEDICARE, SELFPAY ==
[2024-06-08 13:09] VITALS: BP 166/63
--- NOTE | 2024-06-08 15:45 | ED.GENMED ---
History of Present Illness
General
Chief Complaint: Musculo-Skeletal Complaint
Source: patient
Exam Limitations: none
Time Seen by Provider: 06/08/24 14:38
Nursing documentation reviewed up to this point in time: agreed with
History of Present Illness
History of Present Illness:
Patient is a 78-year-old female who was walking down her steps around 11 AM and felt pain in her left posterior buttocks. Since then she has had pain. She notice this pain worse with bending over. She denies any trauma. She denies any actual
back pain. She denies any bruising. She did feel and hear a pop. She is able to bear weight
Review of Systems
Review of Systems
Allergies reviewed?: Yes
All Other Systems: ROS reviewed and negative except as documented in HPI and ROS
Constitutional: Reports no symptoms
Musculoskeletal: Reports other (pain to left buttocks region )
Skin: Reports no symptoms
Psychiatric: Reports no symptoms
Phy Exam
General Physical Exam
General Presentation: no apparent distress
General age: appears stated age
General Skin: warm and dry
General Habitus: normal
General Mental: alert
General Hydration: appears well hydrated
Neurological Exam
Neurological Exam: alert and oriented x3
Musculoskeletal Exam
Musculoskeletal Exam: other (Normal inspection to bilateral buttocks tender to the left lateral buttock region however no obvious swelling ecchymosis or redness.; No bony lumbar tenderness)
Course
Orders/Labs/Results
Orders:
Orders
06/08/24 15:20
Hip, Left 2-3 Views [CR Hip - LT w/wo Pel 2-3 Vw*] Urgent
Comment:
Reason For Exam: pain
Include a pelvis x-ray?: Yes
06/08/24 16:45
Acetaminophen [Tylenol] 650 mg PO NOW STA
Vital Signs
Initial and Last Documented VS:
Initial Vital Signs
Temp Pulse Resp BP Pulse Ox
98.5 F 76 18 166/63 95
06/08/24 13:09 06/08/24 13:09 06/08/24 13:09 06/08/24 13:09 06/08/24 13:09
Last Documented Vital Signs
Temp Pulse Resp BP Pulse Ox
98.5 F 80 18 160/70 96
06/08/24 13:09 06/08/24 16:58 06/08/24 16:58 06/08/24 16:58 06/08/24 16:58
MDM/Problems Addressed
MDM/Problems Addressed:
Symptoms are consistent likely with strain. Patient is well-appearing has good range of motion mildly tender to left posterior buttocks no ecchymosis or concerning signs of infection on exam. She is in no acute distress x-ray is negative. She has
full range of motion to bilateral hips no pain to groin and is able to bear weight.
*Radiology
Radiology exam reviewed: radiology read reviewed
*Pulse Oximetry
Patient hypoxic: no
*Critical Care Note
Total Time (30-74mins, 75-104mins- exclusive of procedures): Not Applicable
ED Attending Note
-
Portions of this chart may have been created with voice recognition software.� Occasional wrong word or��sound alike� substitutions may have occurred due to the inherent limitations of voice recognition software.
Discharge Plan
Departure
Patient Disposition: Home (Routine Discharge)
Date of Disposition: 06/08/24
Time of Disposition: 16:45
Patient with high blood pressure during this ER visit?: Yes
Condition: Fair
Covid-19: Not Applicable
Discharge Problem:
Muscle pain
Instructions: Muscle and Bone Pain (DC)
Prescriptions:
No Action
Stiolto Respimat 2.5-2.5 mcg/actuation Mist
2 puff INHALATION DAILY
enalapril maleate 10 mg tablet
10 mg PO BID
diltiazem HCl 180 mg capsule,extended release 24hr
180 mg PO BID
multivitamin Tablet
1 tab PO DAILY
citalopram 10 mg tablet
10 mg PO HS
omeprazole 10 mg Capsule,Delayed Release(Dr/Ec)
10 mg PO DAILY
aspirin 81 mg Tablet,Chewable
81 mg PO DAILY
bisacodyl [Dulcolax (bisacodyl)] 5 mg Tablet,Delayed Release (Dr/Ec)
15 mg PO DAILY
albuterol sulfate 90 mcg/actuation Hfa Aerosol Inhaler
2 puff INHALATION QID PRN (Reason: shortness of breath)
cholecalciferol (vitamin D3) [Vitamin D3] 25 mcg (1,000 unit) Tablet
25 mcg PO DAILY
metoprolol succinate 100 mg Tablet Extended Release 24 Hr
100 mg PO BID 30 Days Qty: 60 0RF
Eliquis 5 mg Tablet
5 mg PO BID 30 Days Qty: 60 3RF
amoxicillin-pot clavulanate 500-125 mg tablet
1 tab PO BID 7 Days Qty: 14 0RF
Referrals:
Rj Hicks MD [Active] -
Wang Cooley MD [Family Provider] -
Activity Restrictions/Additional Instructions:
As discussed your x-rays were negative for acute findings. Ice the affected area for the next 24 hours 20 minutes at a time several times a day. You may take Tylenol.
Follow-up with your family doctor in the next several days for reevaluation. Follow-up with orthopedics if needed.
Return if any worsening of symptoms
Interventions
Interventions:
*Risk Screen - Suicide Last Done: 06/08/24 13:09
*General Assessment Last Done: 06/08/24 13:09
*Neglect/Abuse Screening Last Done: 06/08/24 13:09
*ED COVID-19 Vaccine History Last Done: 06/08/24 13:09
*Nursing Disposition Last Done: 06/08/24 16:58
ED-Musculoskeletal Assessment Last Done: 06/08/24 14:20
Discharge Date and Time
Discharge Date/Time: 06/08/24 16:59
Print Language: IRAQI
[2024-06-08] MEDS: TYLENOL 650 MG PO (16:49)
[2024-06-08 16:58] VITALS: BP 160/70
== END 2024-06-08 16:59 | disposition home or self-care (01) ==
LOC: EMR 13:08
PROVIDERS: EMERGENCY PHYSICIAN Student in an Organized Health Care Education/Training Program; FAMILY PHYSICIAN Family Medicine
DX: M79.18 Myalgia, other site (principal)
CPT/HCPCS: 99283; 73502

== ENCOUNTER → 2024-08-20 10:51 | Outpatient (REF) | payer MEDICARE, SELFPAY | LOC: HWRAD 10:51 | PROVIDERS: ATTENDING PHYSICIAN Internal Medicine Nephrology; FAMILY PHYSICIAN Family Medicine; OTHER PHYSICIAN Podiatrist Foot Surgery; REFERRING PHYSICIAN Nuclear Medicine Nuclear Cardiology | DX: R80.8 Other proteinuria (principal) | CPT/HCPCS: 76775 ==

== ENCOUNTER → 2024-09-02 10:39 | Outpatient (REF) | payer MEDICARE, SELFPAY | LOC: PAVMRI 10:39 | PROVIDERS: ATTENDING PHYSICIAN Internal Medicine Nephrology; FAMILY PHYSICIAN Family Medicine | DX: I10 Essential (primary) hypertension (principal); E78.2 Mixed hyperlipidemia; N28.89 Other specified disorders of kidney and ureter | CPT/HCPCS: 74183; A9575 ==

== ENCOUNTER → 2024-10-01 12:39 | Outpatient (REF) | payer MEDICARE, SELFPAY | LOC: HWRAD 12:39 | PROVIDERS: ATTENDING PHYSICIAN Internal Medicine Critical Care Medicine; FAMILY PHYSICIAN Family Medicine; OTHER PHYSICIAN Internal Medicine Nephrology; OTHER PHYSICIAN Surgery; REFERRING PHYSICIAN Nuclear Medicine Nuclear Cardiology | DX: R91.1 Solitary pulmonary nodule (principal); R93.89 Abnormal findings on diagnostic imaging of other specified body structures | CPT/HCPCS: 71250 ==

== ENCOUNTER → 2024-10-06 09:41 | Outpatient (REF) | payer MEDICARE, SELFPAY | LOC: MRI 09:41 | PROVIDERS: ATTENDING PHYSICIAN Physician Assistant; FAMILY PHYSICIAN Family Medicine | DX: M54.16 Radiculopathy, lumbar region (principal) | CPT/HCPCS: 72148 ==

== ENCOUNTER → 2024-11-01 10:18 | Outpatient (REF) | payer MEDICARE, SELFPAY | LOC: HWRCS 10:18 | PROVIDERS: ATTENDING PHYSICIAN Nuclear Medicine Nuclear Cardiology; FAMILY PHYSICIAN Family Medicine | DX: I73.9 Peripheral vascular disease, unspecified (principal); I48.0 Paroxysmal atrial fibrillation; I44.7 Left bundle-branch block, unspecified; I34.0 Nonrheumatic mitral (valve) insufficiency | CPT/HCPCS: 93306 ==

== ENCOUNTER → 2024-11-16 10:00 | Outpatient (REF) | payer MEDICARE, SELFPAY | LOC: HWWDC 10:00 | PROVIDERS: ATTENDING PHYSICIAN Family Medicine | DX: Z12.31 Encounter for screening mammogram for malignant neoplasm of breast (principal) | CPT/HCPCS: 77063; 77067 ==

== ENCOUNTER 2024-12-06 07:28 | Outpatient (REF) | payer MEDICARE, SELFPAY ==
[2024-12-06] VITALS (19 sets, daily range): BP systolic 64–171; BP diastolic 54–69
[2024-12-06 07:52] LABS: Hematocrit 45.7 % (37.0-47.0); Hemoglobin 15.8 g/dL (12.0-16.0); Mean Corp Hgb Conc. 34.6 g/dL (33.0-37.0); Mean Corpuscular Volume 90.7 fL (81.0-99.0); Nucleated Red Blood Cells % 0 %; Platelet Count 291 10^3/uL (130-400); Red Cell Dist. Width 14.8 % (11.5-14.5)
[2024-12-06 08:01] LABS: INR 1.07; PT 14.3 Sec (11.4-14.6)
[2024-12-06 08:17] LABS: Blood Urea Nitrogen 25 mg/dl (7-17); Calcium 10.2 mg/dl (8.4-10.2); Carbon Dioxide 30 mmol/L (22-30); Chloride 104 mmol/L (98-107); Glucose 212 mg/dl (70-99); Potassium 4.5 mmol/L (3.5-5.1); Sodium 141 mmol/L (135-145); eGFR > 60.00
[2024-12-06] MEDS: CATAPRES 0.1 MG PO (08:33)
[2024-12-06] MEDS: APRESOLINE 5 MG IV (09:42)
[2024-12-06] MEDS: ATIVAN 0.5 MG PO (09:49)
[2024-12-06 15:03] LABS: Hematocrit 42.2 % (37.0-47.0); Hemoglobin 14.8 g/dL (12.0-16.0)
== END 2024-12-06 16:19 | disposition home or self-care (01) ==
LOC: RADI 07:28
PROVIDERS: Radiology Vascular & Interventional Radiology; ATTENDING PHYSICIAN Internal Medicine Nephrology; FAMILY PHYSICIAN Physician Assistant
DX: I12.9 Hypertensive chronic kidney disease with stage 1 through stage 4 chronic kidney disease, or unspecified chronic kidney disease (principal); N18.30 Chronic kidney disease, stage 3 unspecified; D68.8 Other specified coagulation defects
CPT/HCPCS: 36415; 50200; 76942; 80048; 85014; 85018; 85025; 85610; 99152; 99153